=== PATIENT | male | born 2000 | race Caucasian/White ===

== ENCOUNTER 2018-10-15 23:38 | Emergency (ER) | payer BC | END 2018-10-16 01:18 | disposition home or self-care (01) | LOC: ERS 23:38 | DX: Z03.89 Encounter for observation for other suspected diseases and conditions ruled out (principal); I10 Essential (primary) hypertension; F90.9 Attention-deficit hyperactivity disorder, unspecified type; F17.290 Nicotine dependence, other tobacco product, uncomplicated; Z79.899 Other long term (current) drug therapy | CPT/HCPCS: 99281 ==